=== PATIENT | male | born 1935 | race Caucasian/White ===

== ENCOUNTER 2024-10-11 07:33 | Emergency (ER) | payer MEDICARE, OTHER ==
[~2024-10-11] VITALS: Ht 172.7 cm; Wt 73.5 kg
[2024-10-11] MEDS ORDERED: CLOP75TA15 PO (07:48)
[2024-10-11] MEDS ORDERED: TRAZ-182 PO (07:48)
[2024-10-11] MEDS ORDERED: FLUT1DIS27 IH (07:48)
[2024-10-11] MEDS ORDERED: ATOR40TA PO (07:48)
[2024-10-11] MEDS ORDERED: DEXL30CA3 PO (07:48)
[2024-10-11] MEDS ORDERED: METF-442 PO (07:48)
[2024-10-11] MEDS ORDERED: ONDA4TAB5 PO (07:48)
[2024-10-11 08:11] LABS: BASOPHILS % (AUTO) 0.9 % (0.0-2.0); EOSINOPHILS # (AUTO) 0.1 K/uL (0.0-0.7); EOSINOPHILS % (AUTO) 2.5 % (0.0-7.0); HEMATOCRIT 28.3 % (36.7-47.1); HEMOGLOBIN 9.5 g/dL (12.5-16.3); LYMPHOCYTES # (AUTO) 1.2 K/uL (0.8-4.8); LYMPHOCYTES % (AUTO) 22.3 % (20.5-51.5); MEAN CORPUSCULAR HEMOGLOBIN 31.6 uug (23.8-33.4); MEAN CORPUSCULAR HGB CONC 34 g/dL (32.5-36.3); MONOCYTES # (AUTO) 0.6 K/uL (0.1-1.30); MONOCYTES % (AUTO) 10.3 % (0.0-11.0); NEUTROPHILS # (AUTO) 3.5 K/uL (1.8-8.9); PLATELET COUNT (AUTO) 184 K/uL (152-348); RED BLOOD CELL COUNT(AUTO) 3.02 MIL/uL (4.06-5.63); WHITE BLOOD COUNT (AUTO) 5.5 K/uL (3.6-10.2)
[2024-10-11 08:15] LABS: DIFFERENTIAL COMMENT 1
[2024-10-11 08:18] LABS: CALCIUM 9.4 mg/dL (8.5-10.1); CARBON DIOXIDE 28 mmol/L (21-32); CHLORIDE 109 mmol/L (98-107); CREATININE 1.5 mg/dL (0.6-1.3); GLUCOSE 120 mg/dL (74-106); POTASSIUM 4.6 mmol/L (3.5-5.1); SODIUM SERUM 142 mmol/L (136-145); UREA NITROGEN, BLOOD 24 mg/dL (7-18)
[2024-10-11 08:34] LABS: ALANINE AMINOTRANSFERASE 18 U/L (16-63); ALBUMIN 3.2 g/dL (3.4-5.0); ALKALINE PHOSPHATASE 79 U/L (50-136); ASPARTATE AMINOTRANSFERASE 14 U/L (15-37); BILIRUBIN,DIRECT 0.1 mg/dL (0.0-0.2); BILIRUBIN,TOTAL 0.3 mg/dL (0.2-1.0); NT-PRO BNP 51 pg/mL (0-125)
[2024-10-11] MEDS ORDERED: MAGN400T40 PO (09:35)
[2024-10-11] MEDS ORDERED: BRIM5DRO2 EACHEYE (09:35)
[2024-10-11] MEDS ORDERED: BACL10TA PO (09:35)
[2024-10-11] MEDS ORDERED: LINA290C PO (09:35)
[2024-10-11] MEDS ORDERED: GEMTESA (09:35)
[2024-10-11] MEDS ORDERED: PEPCID (09:35)
[2024-10-11] MEDS ORDERED: BRIN10DR RIGHTEYE (09:35)
[2024-10-11] MEDS ORDERED: ACETAMINOPHEN 500 MG TABLET ONE (09:52)
[2024-10-11] MEDS: ACETAMINOPHEN 500 MG TABLET PO ONE (09:55)
[2024-10-11 11:14] VITALS: BP 144/75; TEMP 97.9; O2SAT 95
[2024-10-11] MEDS ORDERED: IBUP-1953 PO (11:14)
== END 2024-10-11 11:31 | disposition home or self-care (01) ==
LOC: ER 07:39
DX: R07.81 Pleurodynia (principal); R06.00 Dyspnea, unspecified; R09.1 Pleurisy; E11.9 Type 2 diabetes mellitus without complications; E78.5 Hyperlipidemia, unspecified; Z79.02 Long term (current) use of antithrombotics/antiplatelets; Z79.51 Long term (current) use of inhaled steroids; Z79.84 Long term (current) use of oral hypoglycemic drugs; Z79.899 Other long term (current) drug therapy
CPT/HCPCS: 36415; 71045; 84484; 85025; 85730; A4606; A4663; A9150